=== PATIENT | female | born 1950 | race Caucasian/White ===

== ENCOUNTER → 2020-10-20 14:27 | Outpatient (CLI) | payer BC, SELFPAY ==
--- NOTE | 2020-10-20 14:35 | DI.MRI.S_ITS ---
PROCEDURE: MR LUMBAR SPINE WO CON INDICATIONS: Low back pain TECHNIQUE: Noncontrast sagittal T1 spin echo and T2 fast echo, sagittal STIR, axial T1 and T2 fast spin echo through the lumbar spine. In cases with scoliosis, additional coronal T2 fast spin echo may be performed. COMPARISON: None. FINDINGS: Image quality: Excellent. Alignment and Curvature: There is normal bony alignment. Bone Marrow: Marrow is of normal overall signal. No acute vertebral body compression fractures. Spinal Cord: Conus medullaris terminates at the L1 level. Visualized cord demonstrates normal signal and size. Paraspinous Soft Tissues: No paravertebral masses. At T10-T11, there is a posterior disc bulge partially imaged. Resulting in mild central stenosis. T12-L1: Normal appearance. L1-L2: Normal appearance. L2-L3: Mild disc space narrowing with circumferential disc bulge. Moderate hypertrophic facet joints present. There is mild central stenosis moderate left and no right foraminal stenosis. L3-L4: Moderate disc space narrowing present. There is a focal paracentral left disc protrusion measuring 5 millimeters in thickness with inferior sub ligamentous disc extrusion in the inferior migration measuring up to 1 centimeter in length. Disc effaces the left lateral recess and displaces the descending nerve root. Mild central stenosis. No right foraminal stenosis. Mild hypertrophic facet changes results and will mild left foraminal stenosis. There has been a prior right laminotomy. L4-L5: Severe disc space narrowing with mild circumferential disc bulge present. There has been a right laminotomy. Hypertrophic facet joints result in mild bilateral stenosis. There is a focal high-intensity zone in the posterior annulus reflecting annular fissure or tear. No central stenosis. L5-S1: Severe disc space narrowing without significant disc bulge or protrusion. No central foraminal stenosis. IMPRESSION: 1. Focal left L3-4 left paracentral disc protrusion with extrusion and inferior subligamentous migration 2. Multilevel degenerative disc disease resulting in varying degrees of central and foraminal stenosis as above Dictated by: Ulises Humphreys M.D. on 10/20/2020 at 16:14 Approved by: Ulises Humphreys M.D. on 10/20/2020 at 16:35
== END ==
PROVIDERS: PCP Internal Medicine; Referring Provider Acupuncturist; Visit Provider Acupuncturist
DX: M51.36 Other intervertebral disc degeneration, lumbar region (principal); M51.26 Other intervertebral disc displacement, lumbar region; M48.061 Spinal stenosis, lumbar region without neurogenic claudication
CPT/HCPCS: 72148

== ENCOUNTER → 2021-01-02 10:25 | Outpatient (CLI) | payer BC, SELFPAY ==
--- NOTE | 2021-01-02 10:33 | DI.RAD.S_ITS ---
PROCEDURE: XR HIP W PEL IF DONE PRADEEP MIN 4V INDICATIONS: SHOULDER/HIP PAIN TECHNIQUE: AP pelvis with lateral view(s) of the bilateral hip(s). COMPARISON: None. FINDINGS: Bones: No fractures or dislocations. Pelvic ring appears intact. No suspicious bony lesions. Mild joint narrowing with periarticular osteophyte formation of the hip joints. Degenerative disc and facet disease involves the inferior lumbar spine. Soft tissues: The visualized bowel gas pattern is normal. No suspicious soft tissue calcifications. IMPRESSION: Mild symmetric joint degeneration. Dictated by: Boy Bush [facility] Interpreted: Roney Quezada MD on 01/02/2021 at 11:50 Transcribed by: PEYTON on 01/02/2021 at 11:51 Approved by: Roney Quezada M.D. on 01/02/2021 at 15:36
--- NOTE | 2021-01-02 10:33 | DI.RAD.S_ITS ---
PROCEDURE: XR SHOULDER RT MIN 2V INDICATIONS: SHOULDER/HIP PAIN TECHNIQUE: 3 views of the shoulder were acquired. COMPARISON: None. FINDINGS: Bones: No fractures or dislocations. No suspicious bony lesions. Visualized ribs appear intact. Moderate acromioclavicular mild glenohumeral joint space narrowing with periarticular osteophyte formation. Soft tissues: No suspicious soft tissue calcifications. IMPRESSION: Moderate acromioclavicular mild glenohumeral joint degeneration. Dictated by: Boy Bush [facility] Interpreted: Roney Quezada MD on 01/02/2021 at 11:52 Transcribed by: PEYTON on 01/02/2021 at 11:53 Approved by: Roney Quezada M.D. on 01/02/2021 at 15:37
--- NOTE | 2021-01-02 10:33 | DI.RAD.S_ITS ---
PROCEDURE: XR SHOULDER LT MIN 2V INDICATIONS: SHOULDER/HIP PAIN TECHNIQUE: 3 views of the shoulder were acquired. COMPARISON: None. FINDINGS: Bones: No fractures or dislocations. No suspicious bony lesions. Visualized ribs appear intact. Moderate acromioclavicular and mild glenohumeral joint space narrowing with periarticular osteophyte formation. Soft tissues: No suspicious soft tissue calcifications. IMPRESSION: Moderate acromioclavicular mild glenohumeral joint degeneration. Dictated by: Boy Bush [facility] Interpreted: Roeny Quezada MD on 01/02/2021 at 11:51 Transcribed by: PEYTON on 01/02/2021 at 11:51 Approved by: Roney Quezada M.D. on 01/02/2021 at 15:37
== END ==
PROVIDERS: PCP Internal Medicine; Referring Provider Internal Medicine; Visit Provider Internal Medicine
DX: M25.511 Pain in right shoulder (principal); M19.011 Primary osteoarthritis, right shoulder; M19.012 Primary osteoarthritis, left shoulder; M25.659 Stiffness of unspecified hip, not elsewhere classified; M16.0 Bilateral primary osteoarthritis of hip; M51.36 Other intervertebral disc degeneration, lumbar region
CPT/HCPCS: 73030; 73522

== ENCOUNTER → 2022-01-04 13:22 | Outpatient (CLI) | payer BC, SELFPAY ==
--- NOTE | 2022-01-04 | DI.MG.S_ITS ---
BILATERAL DIGITAL SCREENING MAMMOGRAM 3D/2D WITH CAD: 01/04/2022 CLINICAL: Routine screening. Baseline by default. Family history of breast cancer. No prior exams were available for comparison. There are scattered fibroglandular elements in both breasts. Current study was also evaluated with a Computer Aided Detection (CAD) system. No significant masses, calcifications, or other findings are seen in either breast. IMPRESSION: NEGATIVE There is no mammographic evidence of malignancy. A 1 year screening mammogram is recommended. Based on the Tyrer Cuzick model (a risk assessment model) the patient's lifetime risk is 3.3% and her 10 year risk is 2.1%. According to the ACR, ACS, and NCCN guidelines, an annual breast MRI exam along with mammogram is recommended if the patient's lifetime risk is 20% or greater. This exam was interpreted at Station ID: [id number]. NOTE: For mammograms, a report in lay terms will be sent to the patient. Approximately 15% of breast malignancies will not be visualized mammographically. In the management of a palpable breast mass, a negative mammogram must not discourage biopsy of a clinically suspicious lesion. Electronically Signed By: Reena more/duane:01/04/2022 17:04:23 letter sent: Normal Exam ACR BI-RADS Category 1: Negative [id number]
== END ==
PROVIDERS: PCP Internal Medicine; Referring Provider Internal Medicine; Visit Provider Internal Medicine
DX: Z12.31 Encounter for screening mammogram for malignant neoplasm of breast (principal); Z80.3 Family history of malignant neoplasm of breast; Z13.820 Encounter for screening for osteoporosis; M81.0 Age-related osteoporosis without current pathological fracture; E21.3 Hyperparathyroidism, unspecified; Z78.0 Asymptomatic menopausal state
CPT/HCPCS: 77063; 77067; 77080

== ENCOUNTER → 2023-10-04 13:31 | Outpatient (CLI) | payer BC, SELFPAY ==
--- NOTE | 2023-10-04 14:21 | DI.MRI.S_ITS ---
PROCEDURE: MR HEAD/BRAIN WO/W CON INDICATIONS: Change in migraine TECHNIQUE: Noncontrast sagittal T1 spin echo, axial T2 fast spin echo, axial FLAIR, axial gradient echo, axial diffusion and ADC through the brain. Axial/sagittal/coronal 3-D CISS, thin-slice axial T1 spin echo with fat saturation through the skull base. After the administration of contrast, axial and coronal thin-slice T1 spin echo with fat saturation through the skull base, axial and coronal and sagittal T1 spin echo with fat saturation through the brain. COMPARISON: None. FINDINGS: Image quality: Excellent. CSF spaces: Ventricles are normal in size and shape. No extra-axial fluid collections. Basal cisterns are patent. Brain: No intracranial masses or hemorrhage. Warner/white matter interface is normal. Brainstem appears normal. Diffusion-weighted sequence is unremarkable without evidence of acute infarct. Normal intravascular flow voids are present. Atrophy and moderate white matter chronic ischemic change Skull and face: Calvarial marrow signal is normal. Orbits appear normal. Bilateral intraocular lens replacements noted. Sinuses: Sinuses and mastoids appear clear. IMPRESSION: Atrophy and moderate white matter chronic ischemic change without acute infarct, hemorrhage or mass lesion. Approved by: Ulises Humphreys M.D. on 10/06/2023 at 19:02
== END ==
PROVIDERS: PCP Internal Medicine; Referring Provider Internal Medicine; Visit Provider Internal Medicine
DX: G43.909 Migraine, unspecified, not intractable, without status migrainosus (principal); G31.89 Other specified degenerative diseases of nervous system
CPT/HCPCS: 70553; A9579